=== PATIENT | female | born 1930 | race Caucasian/White ===

== ENCOUNTER → 2018-08-19 | Day surgery (SDC) | payer OTHER ==
--- OUTSIDE RECORDS SUMMARY | 2018-08-19 10:03 | XMS REPORT ---
:1930 [facility] [address] [place] [address] Care Team Providers Name Role Phone KEVIN SALEH Primary Care Provider Unavailable KEVIN SALEH Unavailable Unavailable Problems This patient has no known problems. Allergies, Adverse Reactions, Alerts This patient has no known allergies or adverse reactions. Medications This patient has no known medications. Results Test Description Test Time Test Comments Text Results Atomic Results Result Comments Thyroid Stimulating Hormone (TSH) 2016-12-13 23:19:00 Test Item Value Reference Range Comments TSH (test code=TSH) 2.76 mIU/mL 0.270-4.200 D-Dimer, [id number] 22:57:00 Test Item Value Reference Range Comments D-Dimer, Quant (test code=DDQNT) 962 ng/mL 0-500 Comprehensive Metabolic [id number] 22:25:00 Test Item Value Reference Range Comments Sodium (test code=NA) 140 mmol/L 135-145 Potassium (test code=K) 4.1 mmol/L 3.5-5.1 Chloride (test code=CL) 104 mmol/L 98-105 Carbon Dioxide (test 26 mmol/L 22-29 code=CO2) Glucose (test code=GLU) 107 mg/dL 70-115 Blood Urea Nitrogen 21 mg/dL 8-23 (test code=BUN) Creatinine (test 0.9 mg/dL 0.5-0.9 code=CREAT) Calcium (test code=CA) 9.5 mg/dL 8.3-10.5 Prot Total (test 7.0 g/dL 6.4-8.3 code=TP) Albumin (test code=ALB) 4.4 g/dL 3.5-5.2 A/G Ratio (test 1.7 Ratio code=AGRATIO) Globulin (test 2.6 2.9-3.1 code=GLOB) Bili Total (test 0.4 mg/dL 0.1-0.9 code=TBIL) Alk Phos (test 54 U/L 35-104 code=APHOS) AST (test code=AST) 22 U/L 1-32 ALT (test code=ALT) 18 U/L 1-33 BUN/Creatinine Ratio 23.3 (test code=BCRATIO) Anion Gap (test 10 mmol/L 7-16 code=AGAP) Estimated GFR (test >60 mL/min/1.73m2 eGFR (estimated Glomerular code=GFR) Filtration Rate) is an estimated value,calculated from the patient's serum creatinine using the MDRD equation.It is NOT the patient's actual GFR. The eGFR provides a more clinicallyuseful measure of kidney disease than serum creatinine alone.This calculation takes sex and race into account, if the informationis provided. If the race is not provided, and the patient isAfrican-South African, multiply by 1.212. If sex is not provided, and thepatient is female, multiply by 0.742. Results for patients <18 years ofage have not been validated by the MDRD study and should be interpretedwith caution.eGFR Result Interpretation:eGFR > or=60 is in the Normal RangeeGFR < 60 may mean kidney diseaseeGFR < 15 may mean kidney failureRanges recommended by the National Kidney Foundation,http://nkdep.nih .gov CBC with [id number] 21:25:00 Test Item Value Reference Range Comments WBC (test code=WBC) 5.7 K/cumm 4.4-10.5 RBC (test code=RBC) 4.12 M/cumm 3.75-5.20 Hemoglobin (test code=HGB) 13.3 gm/dL 12.2-14.8 Hematocrit (test code=HCT) 41.0 % 36.5-44.4 MCV (test code=MCV) 99.6 fL 80-100 MCH (test code=MCH) 32.3 pg 27.0-32.5 MCHC (test code=MCHC) 32.4 g/dL 32.0-37.5 RDW (test code=RDW) 13.0 % 11.5-14.5 Platelet Count (test code=PLTCT) 198 K/cumm 140-440 MPV (test code=MPV) 9.0 fL Diff Method (test code=DIFFM) Auto Neutrophil (test code=NEUT) 75.2 % 36-70 Lymphocyte (test code=LYMPH) 14.2 % 12-44 Monocyte (test code=MONO) 8.6 % 0-11 Eosinophil (test code=EOS) 1.6 % 0-7 Basophil (test code=BASO) 0.5 % 0-2 Neutro Abs (test code=ANEUT) 4.3 K/cumm 1.6-7.4 Lymph Abs (test code=ALYMPH) 0.8 K/cumm 0.5-4.6 [place] Abs (test code=AMONO) 0.5 K/cumm 0.0-1.2 Eos Abs (test code=AEOS) 0.09 K/cumm 0.00-0.74 Baso Abs (test code=ABASO) 0.0 K/cumm 0.00-0.21
--- NOTE | 2018-08-19 11:12 | RAD REPORT ---
EXAM DESCRIPTION: Ultrasound-guided vacuum assisted right breast core biopsy CLINICAL HISTORY: Breast mass N60.91 COMPARISON: Multiplanar Reconstruction dated 02/04/2018; Follow Up Breast Axilla Comp dated 07/29/2018 ; 3D DIAG DIANNE BILAT W/CAD dated 07/29/2018; Follow Up Breast Axilla Comp dated 03/04/2018; 3D SCR DIANNE B ILAT W/CAD dated 07/17/2017 FINDINGS: Informed consent was obtained and time-out was performed. The patient's right breast was prepped and draped in the usual sterile fashion. 1% lidocaine was used for local anesthetic purposes. Utilizing aseptic technique and ultrasound guidance, a 12 gauge vacuum assisted core biopsy device wa s used to obtain 2 core specimens through the mass of interest 12 o'clock right breast. A post biopsy clip was then placed. All collected material was sent for cytology. Patient tolerated procedure well. IMPRESSION: Successful ultrasound guided vacuum assisted right breast mass biopsy.
== END ==
LOC: DS 09:42
PROVIDERS: ATTEND Specialist
DX: C50.911 Malignant neoplasm of unspecified site of right female breast (principal); Z17.0 Estrogen receptor positive status [ER+]
CPT/HCPCS: 19083; 88305